=== PATIENT | female | born 1995 | race Caucasian/White ===

== ENCOUNTER 2022-11-04 09:27 | Outpatient (CLI) | payer OTHER, SELFPAY ==
--- NOTE | 2022-11-19 17:57 | WPDSLEEPSTUD ---
Sleep Study Date of Study: 11/04/22 Ordering Provider: Issac Carcamo, Interpreting Physician: Pamela Morgan MD Sleep Study Type: Polysomnogram Height: 1.73 m Weight: 102.058 kg Body Mass Index: 34.2 Neck Circumference (inches): 16 [place]: 15 Reason for Sleep Study Hypersomnolence; disrupted sleep Sleep History Heidi Bonds is a 27-year-old woman with poor quality sleep. There is a family history of sleep issues, both parents have sleep apnea. She is taking Viibryd which has helped her fall asleep but she has other issues with her sleep. She is having a basic sleep study for evaluation of obstructive sleep apnea. She did not meet criteria for split night study. She rarely awakens from sleep short of breath. She never wakes at night with heartburn, belching or coughing.??She occasion snores, never snores loudly enough that others complain. She never has trouble sleeping when she has a cold. She never wakes up gasping for breath during the night. She never has breathing problems at night. She rarely sweats excessively at night. She rarely notices her heart pounding or beating irregularly during the night. She frequently falls asleep during the day. She rarely falls asleep involuntarily, never falls asleep while driving. She never experiences loss of muscle tone with strong emotion. She occasionally feels paralyzed on waking or falling asleep. She occasional experiences vivid dreams upon waking or falling asleep. She never feel afraid of going to sleep. She rarely has nightmares. She rarely recalls her dreams. She constantly has thoughts racing through her mind. She constantly feels sad or depressed. She constant feels anxiety. She rarely notices parts of her body jerk. She never kicks during the night. She never feels crawling or aching feelings in her legs. She rarely feels leg pain at night. She never grinds her teeth, never has morning jaw pain. She rarely feels bothered by pain during the day, never awakened by pain during the night. She rarely wakes up feeling stiff in the morning, rarely wakes feeling sore or achy in the morning. She occasionally awakens with pain in her neck, spine, or joints. She reports a weight gain of 20 lb in the last year. Normal bedtime is between 9:30 p.m. and 10:00 p.m., usually falling asleep within an hour. She typically gets about 6-7 hours of sleep per night. Her wake time is between 6:00 a.m. and 7:00 a.m. She wakes 1 or 2 times during the night, usually this is to urinate. She is able to get back to sleep quickly. If she is not able to return to sleep quickly, she stays up. She takes naps in the afternoon or evening. A short nap lasting 10 or 15 minutes is not refreshing. She is usually drowsy for 2 hours after waking. Habits:??Tobacco: Former smoker. Caffeine: 1 serving every other day. Alcohol: none Recreational substances: Yes, type is not specified. [facility] Past Medical History Medical History (Updated 11/19/22 @ 18:19 by Pamela Morgan MD) Anxiety and depression Excessive daytime sleepiness IBS (irritable bowel syndrome) Kidney stones PCOS (polycystic ovarian syndrome) Post traumatic stress disorder (PTSD) Seasonal allergies Surgical History Surgical History (Updated 11/19/22 @ 18:18 by Pamela Morgan MD) Status post cholecystectomy Family History Family History (Updated 11/19/22 @ 18:26 by Pamela Morgan MD) Mother Obstructive sleep apnea Father Obstructive sleep apnea Social History Social History (Updated 11/19/22 @ 18:18 by Pamela Morgan MD) Smoking status: Former smoker Alcohol intake: never Medications Medications: Viibryd ( vilazodone )40 mg HS for anxiety/ depression Rexulti 0.5 mg at night, anxiety/depression magnesium 2 capsules at night to help sleep B12 1 capsule in the morning B complex 1 capsule in the morning allergy pill twice a day dicyclomine 10 mg capsule q.i.d. before meals and bedt
[2022-11-19 18:29] VITALS: BMI 34.2
== END 2022-11-05 06:09 | disposition home or self-care (01) ==
LOC: ANHCSM 09:30
PROVIDERS: Visit Provider Psychiatry & Neurology Psychiatry
DX: G47.19 Other hypersomnia (principal); G47.33 Obstructive sleep apnea (adult) (pediatric)
CPT/HCPCS: 95810